=== PATIENT | male | born 1990 | race African-American/Black ===

== ENCOUNTER 2020-04-17 11:31 | Emergency (ER) | payer OTHER ==
[~2020-04-17] VITALS: Ht 170.2 cm; Wt 63.5 kg
[2020-04-17] MEDS ORDERED: NOHOMEMEDICATIONS (11:52)
[2020-04-17 12:18] LABS: HEMATOCRIT 36.6 % (42.0-52.0); HEMOGLOBIN 11.9 gm/dL (14.0-18.0); MCH 23.1 pg (26.0-34.0); MCHC 32.6 g/dL (28.0-37.0); MCV 70.9 fL (80.0-100.0); PLATELET COUNT 215 thou/uL (150-400); RBC 5.16 mil/uL (4.50-6.00); RDW 14.9 % (10.5-14.5); WBC 4.8 thou/uL (4.0-11.0)
[2020-04-17 12:36] LABS: CALCIUM 8.6 mg/dL (8.5-10.1); CREATININE 0.9 mg/dL (0.7-1.3); POTASSIUM 3.5 mmol/L (3.5-5.1)
[2020-04-17 12:40] LABS: TOTAL BILIRUBIN 0.5 mg/dL (0.2-1.0); TOTAL PROTEIN 7.9 g/dL (6.4-8.2)
[2020-04-17 13:05] LABS: ABSOLUTE NEUTROPHILS 1.8 thou/uL (1.4-8.2)
[2020-04-17 13:06] LABS: ANISOCYTOSIS 1+; HYPOCHROMASIA 3+; MICROCYTES 3+
[2020-04-17 13:57] LABS: URINE BLOOD NEGATIVE (Negative); URINE CLARITY CLEAR; URINE COLOR YELLOW; URINE GLUCOSE-RANDOM* NEGATIVE (Negative); URINE KETONES NEGATIVE (Negative); URINE LEUKOCYTES-REFLEX NEGATIVE (Negative); URINE NITRITE-REFLEX NEGATIVE (Negative); URINE PROTEIN (DIPSTICK) TRACE (Negative); URINE SPECIFIC GRAVITY >= 1.030 (1.005-1.035)
[2020-04-17 13:59] LABS: ICTOTEST (BILI CONFIRMATORY) Negative (Negative); URINE BILIRUBIN NEGATIVE (Negative)
[2020-04-17 14:06] LABS: AMP/METHAMP Negative (Negative); BARBITURATES Negative (Negative); BENZODIAZEPINES Negative (Negative); COCAINE Negative (Negative); METHADONE Negative (Negative); OPIATES Negative (Negative); PCP Negative (Negative)
[2020-04-17] MEDS ORDERED: FLUPHENAZINE H2.5 MG PO (15:50)
[2020-04-17] MEDS ORDERED: ZYPREXA5 MG PO (15:50)
[2020-04-17 16:09] VITALS: BP 110/70
--- NOTE | 2020-04-19 08:42 | EKG ---
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 CHAVEZ : 1990 Requested By: David Avina Order Number: [id number] MD: Farshad Browne Measurements Intervals [place] Rate: 69 P: 62 WV: 130 QRS: 75 QRSD: 101 T: 74 QT: 390 QTc: 418 Interpretive Statements Sinus rhythm RSR' in V1 or V2, probably normal variant ST elev, probable normal early repol pattern No previous ECG available for comparison Electronically Signed On 04-19-2020 8:39:53 CDT by Farshad Browne [email or web address] <ELECTRONICALLY SIGNED> By: Farshad Browne MD, [facility] 04/19/20 0839 1203 1203 Farshad Browne MD, [facility] /EPI
== END 2020-04-17 16:11 | disposition home or self-care (01) ==
LOC: ER 11:31
PROVIDERS: Emergency Medicine
DX: F20.9 Schizophrenia, unspecified (principal); Z91.14 Patient's other noncompliance with medication regimen; F12.90 Cannabis use, unspecified, uncomplicated